=== PATIENT | male | born 1955 | race Caucasian/White ===

== ENCOUNTER 2018-02-09 15:35 | Inpatient (IN) | payer OTHER ==
[~2018-02-09] VITALS: Ht 175.3 cm; Wt 81.6 kg
[2018-02-09] MEDS ORDERED: CARB100C3 PO (15:56)
[2018-02-09] MEDS ORDERED: FURO40TA4 PO (15:56)
[2018-02-09] MEDS ORDERED: POTA10TA51 PO (15:56)
[2018-02-09] MEDS ORDERED: GABA100C9 PO (15:56)
[2018-02-09] MEDS ORDERED: ATEN-60 PO (15:56)
[2018-02-09] MEDS ORDERED: LISI10TA6 PO (15:56)
[2018-02-09] MEDS ORDERED: ENOXAPARIN SOD 100 MG/1 ML SYRINGE SC ONE (16:15)
[2018-02-09 16:37] LABS: Basophils # (auto) 0.1 uL; Basophils % (auto) 1.1 % (0.0-2.0); Eosinophils # (auto) 0.1 uL; Eosinophils % (auto) 1.6 % (0.0-7.0); Hematocrit 41.9 % (41.0-53.0); Hemoglobin 14.4 g/dL (13.5-17.5); Lymphocytes # (auto) 1.1 uL; Lymphocytes % (auto) 15.6 % (10.0-50.0); Mean Corpuscular Hemoglobin 31.3 pg (28.0-32.0); Mean Corpuscular Hgb Conc. 34.3 g/dL (32.0-36.0); Mean Corpuscular Volume 91.2 fL (80.0-100.0); Monocytes # (auto) 0.7 uL; Monocytes % (auto) 9.5 % (0.0-12.0); Neutrophils # (auto) 5.1 uL; Neutrophils % (auto) 72.2 % (37.0-80.0); Platelet Count (auto) 170 10^3/uL (140-450); Red Blood Cells 4.59 10^6/uL (4.5-5.90); Red Cell Distribution Width 14.9 % (11.8-14.3); White Blood Cell 7.1 10^3/uL (4.4-10.8)
[2018-02-09 16:57] LABS: BUN/Creatinine Ratio 21.3; Bilirubin, Total 0.6 mg/dL (0.2-1.0); Calcium 8.6 mg/dL (8.5-10.1); Potassium 3.9 mmol/L (3.5-5.1); Total Protein 7.4 g/dL (6.4-8.2)
[2018-02-09] MEDS ORDERED: MORPHINE SULF INJ 2 MG/ML SYRINGE 1ML IV PRN (17:00)
[2018-02-09] MEDS ORDERED: ONDANSETRON HCL 4 MG/2 ML VIAL IV PRN (17:00)
[2018-02-09 17:04] LABS: INR 1.01 (0.9-1.15); Partial Thromboplastin Time 25.4 sec (23.78-33.04); Prothrombin Time 10.8 sec (9.27-12.13)
[2018-02-09] MEDS ORDERED: ENOXAPARIN SOD 80 MG/0.8ML SYRINGE SC SCH (18:00)
[2018-02-09 20:45] VITALS: BP 131/70
[2018-02-09] MEDS: HYDROcodone-ACET 5/325MG TAB PO PRN (21:28)
[2018-02-09 21:30] VITALS: BP 131/70
[2018-02-09] MEDS: GABAPENTIN 100 MG CAP PO SCH (21:32)
[2018-02-09] MEDS: carBAMazepine 200 MG TAB PO SCH (21:33)
[2018-02-09] MEDS: APIXABAN 5 MG TAB PO SCH (21:33)
[2018-02-10 05:00] VITALS: BP 110/67
[2018-02-10 05:39] LABS: Basophils # (auto) 0.1 uL; Basophils % (auto) 1.1 % (0.0-2.0); Eosinophils # (auto) 0.1 uL; Hematocrit 42.9 % (41.0-53.0); Hemoglobin 15.1 g/dL (13.5-17.5); Lymphocytes # (auto) 1.5 uL; Lymphocytes % (auto) 21.5 % (10.0-50.0); Mean Corpuscular Hemoglobin 31.9 pg (28.0-32.0); Mean Corpuscular Hgb Conc. 35.1 g/dL (32.0-36.0); Mean Corpuscular Volume 90.9 fL (80.0-100.0); Monocytes # (auto) 0.7 uL; Monocytes % (auto) 10.5 % (0.0-12.0); Neutrophils # (auto) 4.6 uL; Neutrophils % (auto) 64.9 % (37.0-80.0); Platelet Count (auto) 175 10^3/uL (140-450); Red Blood Cells 4.72 10^6/uL (4.5-5.90); Red Cell Distribution Width 14.9 % (11.8-14.3); White Blood Cell 7.1 10^3/uL (4.4-10.8)
[2018-02-10 05:57] LABS: BUN/Creatinine Ratio 18.4; Calcium 8.5 mg/dL (8.5-10.1); Potassium 3.4 mmol/L (3.5-5.1)
[2018-02-10] MEDS ORDERED: ENOXAPARIN SOD 80 MG/0.8ML SYRINGE SC SCH (06:00)
[2018-02-10 08:42] LABS: Urine Bacteria NONE SEEN /hpf (None Seen); Urine Blood 1+ /uL (Negative); Urine Mucus FEW (None Seen); Urine Specific Gravity 1.026 (1.001-1.035); Urine WBC 1 /hpf (0 - 3)
[2018-02-10 09:00] VITALS: BP 108/70
[2018-02-10] MEDS: APIXABAN 5 MG TAB PO SCH (09:53)
[2018-02-10] MEDS: GABAPENTIN 100 MG CAP PO SCH (09:54)
[2018-02-10] MEDS: carBAMazepine 200 MG TAB PO SCH (09:54)
[2018-02-10] MEDS: HYDROcodone-ACET 5/325MG TAB PO PRN (09:54)
[2018-02-10] MEDS ORDERED: POTASSIUM CHL 20 Meq TABLET PO ONE (10:30)
[2018-02-10] MEDS ORDERED: APIX5TAB PO (11:53)
[2018-02-10 12:50] VITALS: BP 108/70
[2018-02-16] MEDS ORDERED: APIXABAN 5 MG TAB PO SCH (22:00)
== END 2018-02-10 13:23 | disposition home health service (06) | DRG 301 ==
LOC: ER 15:44 → OVERFLOW 15:45 → WEST WING 20:42
PROVIDERS: ADMIT Internal Medicine; ATTEND Internal Medicine
DX: I82.401 Acute embolism and thrombosis of unspecified deep veins of right lower extremity (principal); G89.29 Other chronic pain; F12.90 Cannabis use, unspecified, uncomplicated; I10 Essential (primary) hypertension; I95.9 Hypotension, unspecified; M54.9 Dorsalgia, unspecified; G40.909 Epilepsy, unspecified, not intractable, without status epilepticus; M54.2 Cervicalgia
CPT/HCPCS: 36415; 80048; 80053; 81001; 84154; 85025; 85379; 85610; 85730; 93005; 94761; 96372